=== PATIENT | female | born 1955 | race Caucasian/White ===

== ENCOUNTER 2019-12-25 21:44 | Emergency (ER) | payer OTHER ==
[2019-12-25 21:53] VITALS: BP 148/88; PULSE 77; TEMP 97.9; BMI 29.7
[2019-12-25 23:41] LABS: BASO % 0.6 % (0-2.0); EOS % 2.7 % (0-4.5); HEMATOCRIT 39.4 % (32.4-45.2); LYMPH % 29.8 % (8-40); MCH 30.3 pg (25.7-33.7); MEAN PLT VOLUME 8.4 fl (7.5-11.1); MONO % 5.3 % (3.8-10.2); NEUT % 61.6 % (42.8-82.8); PLATELET COUNT 312 K/MM3 (134-434); RBC 4.29 M/mm3 (3.60-5.2); RDW 11.8 % (11.6-15.6); WHITE BLOOD COUNT 8.3 K/mm3 (4.0-10.8)
[2019-12-26] MEDS ORDERED: CEPHALEXIN MONOHYDRATE 500 MG CAPSULE (UD) PO ONE (00:08)
[2019-12-26] MEDS ORDERED: CEPHALEXIN MONOHYDRATE 500 MG CAPSULE (UD) ONE (00:12)
--- NOTE | 2019-12-31 15:07 | PDOC ---
Documentation entered by Sulma Rivas SCRIBE, acting as scribe for Renee Oconnell MD. Renee Oconnell MD: This documentation has been prepared by the Rob hendricks Brenda, SCRIBE, under my direction and personally reviewed by me in its entirety. I confirm that the documentation accurately reflects all work, treatment, procedures, and medical decision making performed by me. History of Present Illness - General Chief Complaint: Redness To Affected Area Stated Complaint: LT ELBOW SWELLING/PAIN Time Seen by Provider: 12/25/19 21:49 History Source: Patient Exam Limitations: No Limitations - History of Present Illness Initial Comments: This otherwise healthy 64-year-old woman presents with swelling and ecchymosis of the left elbow. She noted swelling of the olecranon area of her left elbow yesterday. The area was minimally tender. She has no recall of any recent trauma or overuse related to her left elbow. She states that she massaged the area lightly but otherwise did not manipulate the area. Today, she noted significant bruising around the point of her elbow extending distally to mid forearm. She denies any other areas of bruising or rash on her body. She has had no bleeding except for a small area in her mouth where she has an implant. She denies any difficulty with clotting after cutting herself. No open wound of the elbow has occurred as far as the patient knows. She has not had any fever or chills Patient notes no other acute swelling of any other joint. She does have chronic left shoulder discomfort No daily medications No known allergies No history of smoking; no daily alcohol or recreational drug use Past History - Past Medical History Allergies/Adverse Reactions: Allergies Allergy/AdvReac Type Severity Reaction Status Date / Time No Known Allergies Allergy Unverified 12/25/19 21:47 Home Medications: Ambulatory Orders Cephalexin Monohydrate [Keflex -] 500 mg PO Q8H #15 capsule 12/26/19 COPD: No - Psycho Social/Smoking Cessation Hx Smoking History: Never smoked Review of Systems - Review of Systems Able to Perform ROS?: Yes Comments:: 12 point review of systems is negative except for what is noted in the history of present illness *Physical Exam - Vital Signs Last Vital Signs Temp Pulse Resp BP Pulse Ox 97.9 F 77 16 148/88 100 12/25/19 21:48 12/25/19 21:48 12/25/19 21:48 12/25/19 21:48 12/25/19 21:48 - Physical Exam GENERAL: Adult female, alert and oriented x3, no acute distress HEAD: Normal with no signs of trauma. EYES: PERRLA, EOMI, sclera anicteric, conjunctiva clear. EXTREMITIES: Left elbow-mild edema, mild erythema, slight increased warmth to touch, minimal tenderness olecranon process No fluctuance palpable above the olecranon process. No obvious skin breakage noted Nontender ecchymosis extends 2 cm approximately in 6 cm distally from olecranon process Motor and sensory functioning intact in left upper extremity Remainder of the extremity exam is normal NEUROLOGICAL: Cranial nerves II through XII grossly intact. Normal speech. No focal neurological deficits. ED Treatment Course - LABORATORY CBC & Chemistry Diagram: 12/25/19 23:20 - RADIOLOGY Radiology Studies Ordered: Category Date Time Status ELBOW-LEFT [RAD] Stat Radiology 12/25/19 22:32 Taken Medical Decision Making - Medical Decision Making Left elbow x-ray performed: Preliminary interpretation by me-no evidence of fracture or dislocation Because of the unclear etiology of the patient's left elbow ecchymosis, CBC and chemistry profile performed to investigate whether patient had evidence of thrombocytopenia, liver or kidney insufficiency. Laboratory evaluation is essentially normal. Platelet count is 312,000. WBC count is normal at 7200. No electrolyte abnormalities; renal function is normal and no evidence of LFT abnormalities seen. Etiology of ecchymosis around mildly edematous olecranon process still unclear. However, the patient has evidence of at least mild olecranon bursitis. Patient will be empirically treated with Keflex 500 mg 3 times a day for 5 days for possible mild cellulitis in the area. Examination of the area is not consistent with septic bursitis so no diagnostic drainage of fluid will be undertaken. Alejandro wrap applied to the elbow. First dose of Keflex 500 mg given here in the ER. Patient will follow-up with her general doctor within the next 3 to 4 days. She should return to the ER if she has increasing pain/swelling in the area of the left elbow or if she develops fever/chills. Discharge - Discharge Information Problems reviewed: Yes Clinical Impression/Diagnosis: Olecranon bursitis of left elbow Condition: Stable Disposition: HOME - Additional Discharge Information Prescriptions: Cephalexin Monohydrate [Keflex -] 500 mg PO Q8H #15 capsule - Follow up/Referral - Patient Discharge Instructions Patient Printed Discharge Instructions: Bursitis Additional Instructions: Alejandro wrap to left elbow during the day; remove at night Avoid direct trauma to the elbow for the next several days Keflex 500 mg 3 times a day for the next 5 days Can use Tylenol for pain Follow-up with your doctor within the next 3 to 4 days Return to ER if you have increased pain/swelling/warmth in the area - Post Discharge Activity
== END 2019-12-26 00:14 | disposition home or self-care (01) ==
LOC: FER 21:44
DX: M70.22 Olecranon bursitis, left elbow (principal)
CPT/HCPCS: 36415; 73070-TC-LT-FY; 85025; 99281-25

== ENCOUNTER 2020-12-31 14:18 | Emergency (ER) | payer OTHER | END 2020-12-31 17:04 | disposition home or self-care (01) | LOC: JVIRT 14:18 | DX: U07.1 COVID-19 (principal) | CPT/HCPCS: C9803; G2251-GT; Q3014-GT; U0003 ==

== ENCOUNTER 2023-03-02 17:23 | Emergency (ER) | payer OTHER ==
[2023-03-02 17:47] VITALS: BP 159/78; PULSE 82; RESP 16; TEMP 97.8; BMI 29.0
[2023-03-02] MEDS ORDERED: IBUPROFEN 400 MG TABLET (FP) PO ONE ×2 (18:14→18:17)
[2023-03-02] MEDS ORDERED: AMOX TR/POT CLAV 875MG/125MG TABLETS (FP) PO ONE (18:43)
[2023-03-02] MEDS ORDERED: AMOX TR/POT CLAV 875MG/125MG TABLETS (FP) ONE (18:51)
== END 2023-03-02 19:05 | disposition home or self-care (01) ==
LOC: FER 17:23
PROC: 2W3KX1Z Immobilization of Left Finger using Splint (ICD-10-PCS; principal; 2023-03-02)
PROC: 0HQGXZZ Repair Left Hand Skin, External Approach (ICD-10-PCS; 2023-03-02)
DX: S62.665B Nondisplaced fracture of distal phalanx of left ring finger, initial encounter for open fracture (principal); S61.215A Laceration without foreign body of left ring finger without damage to nail, initial encounter; W23.1XXA Caught, crushed, jammed, or pinched between stationary objects, initial encounter
CPT/HCPCS: 73140-TC-LT-FY; 99283-25

== ENCOUNTER 2023-03-14 13:18 | Emergency (ER) | payer OTHER ==
[2023-03-14 13:45] VITALS: BP 139/95; PULSE 65; RESP 20; TEMP 98.1; BMI 25.0
== END 2023-03-14 14:10 | disposition home or self-care (01) ==
LOC: FER 13:18
DX: Z48.02 Encounter for removal of sutures (principal)
CPT/HCPCS: 99283-25

== ENCOUNTER 2024-11-11 14:33 | Emergency (ER) | payer OTHER ==
[2024-11-11 15:00] VITALS: BP 159/69; PULSE 65; RESP 18; TEMP 98.2; BMI 29.7
[2024-11-11 15:30] LABS: INR 1.03 (0.83-1.09); PROTHROMBIN TIME (PATIENT) 11.7 SEC (9.7-13.0)
[2024-11-11 15:32] LABS: ACTIVATED PTT 35.7 SECONDS (25.2-36.5)
[2024-11-11 15:39] LABS: HEMATOCRIT 37.6 % (32.4-45.2); HEMOGLOBIN 12.6 G/dL (10.7-15.3); MCH 30.9 pg (25.7-33.7); MCHC 33.5 g/dl (32.0-36.0); MEAN CELL VOLUME 92.5 fl (80-96); MEAN PLT VOLUME 8.9 fl (7.5-11.1); PLATELET COUNT 257.4 10^3/uL (134-434); RBC 4.07 10^6/uL (3.60-5.2); RDW 12.9 % (11.6-15.6); WHITE BLOOD COUNT 7.1 10^3/uL (4.0-10.8)
[2024-11-11 15:50] LABS: PLATELET ESTIMATE ADEQUATE
[2024-11-11 15:59] LABS: ALBUMIN 4.4 g/dl (3.4-5.0); BILIRUBIN,TOTAL 0.6 mg/dl (0.2-1); CALCIUM 9.4 mg/dl (8.5-10.1); CREATININE 0.9 mg/dl (0.6-1.3); MAGNESIUM 1.9 mg/dL (1.8-2.4); POTASSIUM 3.4 mmol/L (3.5-5.1); TOT PROT 7.5 g/dl (6.4-8.2)
[2024-11-11 17:20] LABS: HIV INTERPRETATION NEGATIVE (NEGATIVE)
== END 2024-11-11 17:50 | disposition home or self-care (01) ==
LOC: FER 14:33
DX: M99.71 Connective tissue and disc stenosis of intervertebral foramina of cervical region (principal); I51.7 Cardiomegaly; M25.512 Pain in left shoulder
CPT/HCPCS: 36415; 71046-TC-FY; 72141-TC; 80053; 83735; 84484; 85025; 85610; 85730; 86803; 87389; 93005; 99285-25